=== PATIENT | male | born 1985 | race Caucasian/White ===

== ENCOUNTER 2018-10-06 12:10 | Emergency (ER) | payer BC, OTHER ==
--- NOTE | 2018-10-06 12:26 | EDM.PDOC ---
ED HPI GENERAL MEDICAL PROBLEM - General Chief Complaint: Back Pain or Injury Stated Complaint: BACK INJURY Time Seen by Provider: 10/06/18 12:25 Source of Information: Reports: Patient History Limitations: Reports: No Limitations - History of Present Illness INITIAL COMMENTS - FREE TEXT/NARRATIVE: HISTORY AND PHYSICAL: History of present illness: Patient is a 33-year-old male who presents to the emergency room with complaints of left sided lumbar back pain that radiates into his gluteus and down the posterior leg. He states he was evaluated in the clinic on Sunday and did have imaging done at that time. He was prescribed Flexeril and diclofenac. He has not had any relief with these medications. Patient denies any fever, chills, headache, change in vision, syncope or near syncope. Denies any chest pain, shortness of breath or cough. Denies any abdominal pain, nausea, vomiting, diarrhea, constipation or dysuria. Has not noted any blood in urine or stool. No urinary or fecal incontinence. Patient has been eating and drinking appropriately. Review of systems: As per history of present illness and below otherwise all systems reviewed and negative. Past medical history: As per history of present illness and as reviewed below otherwise noncontributory. Surgical history: As per history of present illness and as reviewed below otherwise noncontributory. Social history: See social history for further information Family history: As per history of present illness and as reviewed below otherwise noncontributory. Physical exam: General: Well-developed and well-nourished 33-year-old male. Alert and oriented. Nontoxic appearing and in no acute distress. HEENT: Atraumatic, normocephalic, pupils equal and reactive bilaterally, negative for conjunctival pallor or scleral icterus, mucous membranes moist, trachea midline. No drooling or trismus noted. No meningeal signs. No hot potato voice noted. Lungs: Clear to auscultation, breath sounds equal bilaterally, chest nontender. Heart: S1S2, regular rate and rhythm without overt murmur Abdomen: Soft, nondistended, nontender. Negative for masses or hepatosplenomegaly. Negative for costovertebral tenderness. Pelvis: Stable nontender. Genitourinary: Deferred. Rectal: Deferred. Skin: Intact, warm, dry. No lesions or rashes noted. C-spine/Back: No pinpoint vertebral tenderness upon palpation. No crepitus, step -offs or obvious deformities. Patient is ambulatory into the emergency room without difficulty or deficits. He is able to lift his great toe towards his nose without difficulty. He denies any urinary or fecal incontinence. Denies any numbness, tingling or saddle paresthesia. Paraspinal muscular tenderness to the left lumbar region into the glute. Extremities: Moves all extremities per self without difficulty or deficits, negative for cords or calf pain. Neurovascular unremarkable. Neuro: Awake, alert, oriented. Cranial nerves II through XII unremarkable. Cerebellum unremarkable. Motor and sensory unremarkable throughout. Exam nonfocal. Notes: Unable to view [facility]'s x-ray reports, it is a weekend and unable to access these medical records either. He is requesting a CT or MRI of his lumbar spine. Do not have MRI capabilities, we discussed the need for follow-up with his primary care for this diagnostic. We'll perform a CT at this time. He has been taking 5 mg of Flexeril and 50 mg of diclofenac. His last dose being early this morning. 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 X-ray shows no acute osseous abnormalities. Medication education was reviewed and discussed. Supportive care measures were reviewed and discussed. Voices understanding and is agreeable to plan of care. Denies any further questions or concerns at this time. Diagnostics: Lumbar spine CT Therapeutics: Dilaudid, Solu-Medrol Prescription: [place] (#20) Medrol Dosepak Impression: Back pain with sciatica Plan: 1. The medication he received as an injection today does cause drowsiness so do not drive for the remaining day 2. When resting please lay on a flat firm surface. Limit your immobility to prevent muscle stiffness, get up to ambulate/move around/gentle stretching multiple times throughout the day. May alternate heat and ice to the painful area and 3. Tylenol as needed for back pain. Otherwise take the prescribed Flexeril and diclofenac as directed. Diclofenac is an anti-inflammatory so do not take any additional NSAIDs with this medication, such as ibuprofen or Aleve. Flexeril as a muscle relaxant, this medication may cause drowsiness a do not take it will driving her needing to be functioning outside of the house. Do not combine the Flexeril or [place] as both cause drowsiness. 4. Please follow-up with your primary care provider as we discussed. 5. Return to the ED as needed and as discussed. Definitive disposition and diagnosis as appropriate pending reevaluation and review of above. Left lower back Pain Score (Numeric/FACES): 4 - Related Data Allergies Allergy/AdvReac Type Severity Reaction Status Date / Time No Known Allergies Allergy Verified 10/06/18 12:25 Home Meds: Home Meds Cyclobenzaprine [Flexeril] 5 mg PO ASDIRECTED 10/06/18 [History] Diclofenac Sodium [Voltaren] 50 mg PO ASDIRECTED 10/06/18 [History] ED ROS GENERAL - Review of Systems Review Of Systems: ROS reveals no pertinent complaints other than HPI. ED EXAM,LOWER BACK PAIN/INJURY - Physical Exam Exam: See Below (See dictation) Course - Vital Signs Last Recorded V/S: Last Vital Signs Temp 98.3 F 10/06/18 12:26 Pulse 69 10/06/18 12:26 Resp 16 10/06/18 12:26 BP 118/83 10/06/18 12:26 Pulse Ox 97 10/06/18 12:26 - Orders/Labs/Meds Meds: Medications Discontinued Medications Generic Name Dose Route Start Last Admin Trade Name Freq PRN Reason Stop Dose Admin Hydromorphone HCl 1 mg 10/06/18 12:31 10/06/18 13:06 Dilaudid IM 10/06/18 12:32 Not Given ONETIME ONE Hydromorphone HCl 1 mg 10/06/18 13:01 10/06/18 13:02 Dilaudid IM 10/06/18 13:02 1 mg ONETIME ONE Administration Hydromorphone HCl Confirm 10/06/18 12:58 10/06/18 13:06 Dilaudid Administered 10/06/18 12:59 Not Given Dose 1 mg .ROUTE .STK-MED ONE Methylprednisolone Sodium Succinate 125 mg 10/06/18 12:31 10/06/18 13:01 Solu-Medrol IM 10/06/18 12:32 125 mg ONETIME ONE Administration Departure - Departure Time of Disposition: 13:16 Disposition: Home, Self-Care 01 Clinical Impression: Back pain with sciatica - Discharge Information Instructions: Sciatica, [id number] Referrals: PCP,Unknown [Primary Care Provider] - Forms: ED Department Discharge Additional Instructions: The following information is given to patients seen in the emergency department who are being discharged to home. This information is to outline your options for follow-up care. We provide all patients seen in our emergency department with a follow-up referral. The need for follow-up, as well as the timing and circumstances, are variable depending upon the specifics of your emergency department visit. If you don't have a primary care physician on staff, we will provide you with a referral. We always advise you to contact your personal physician following an emergency department visit to inform them of the circumstance of the visit and for follow-up with them and/or the need for any referrals to a consulting specialist. The emergency department will also refer you to a specialist when appropriate. This referral assures that you have the opportunity for follow-up care with a specialist. All of these measure are taken in an effort to provide you with optimal care, which includes your follow-up. Under all circumstances we always encourage you to contact your private physician who remains a resource for coordinating your care. When calling for follow-up care, please make the office aware that this follow-up is from your recent emergency room visit. If for any reason you are refused follow-up, please contact the [facility] Emergency Department at and asked to speak to the emergency department charge nurse. [facility] [address] [place] [id number] [place] [address] 1. The medication he received as an injection today does cause drowsiness so do not drive for the remaining day 2. When resting please lay on a flat firm surface. Limit your immobility to prevent muscle stiffness, get up to ambulate/move around/gentle stretching multiple times throughout the day. May alternate heat and ice to the painful area and 3. Tylenol as needed for back pain. Otherwise take the prescribed Flexeril and diclofenac as directed. Diclofenac is an anti-inflammatory so do not take any additional NSAIDs with this medication, such as ibuprofen or Aleve. Flexeril as a muscle relaxant and [place] is a narcotic, these medication may cause drowsiness a do not take it will driving her needing to be functioning outside of the house. Do not combine the Flexeril or [place] as we discussed at length. 4. Please follow-up with your primary care provider as we discussed. 5. Return to the ED as needed and as discussed.
[2018-10-06] MEDS ORDERED: HYDROmorphone 2 MG/ML SDV IM ONE (12:31)
[2018-10-06] MEDS ORDERED: methylPREDNISolone Sodium Succinate 125 MG/2 ML SDV IM ONE (12:31)
[2018-10-06] MEDS ORDERED: HYDROmorphone 1 MG/ML Syringe ONE (12:58)
[2018-10-06] MEDS ORDERED: HYDROmorphone 1 MG/ML Syringe IM ONE (13:01)
--- NOTE | 2018-10-06 13:11 | CT ---
INDICATION: Pt w/lower back pain x 1 wk. Pt denies any injury. No hx of surg. COMPARISON: None. TECHNIQUE: Routine thin-section noncontrast axial CT images of the lumbosacral spine. Sagittal and coronal reformatted series were also generated and reviewed. Total exam DLP 986 mGy-cm. FINDINGS: There are 5 non rib-bearing lumbar type vertebral bodies. Normal vertebral body heights and alignment. There is straightening of the normal lumbar lordosis. No evidence of acute fracture or subluxation. There are multilevel Schmorl`s nodes. Disc spaces are preserved. There is moderate right facet degenerative change at L3-4. The bony spinal canal is widely patent. The bony neural foramina appear patent. Sacroiliac joints are intact. The visualized intra-abdominal and pelvic contents have an unremarkable noncontrast appearance. IMPRESSION: 1. No acute osseous abnormality. 2. Moderate right facet degenerative change at L3-4. 3. Multilevel Schmorl`s nodes. Dictated by Geronimo Pichardo MD @ 10/06/2018 1:09:56 PM Please note that all CT scans at this facility use dose modulation, iterative reconstruction, and/or weight-based dosing when appropriate to reduce radiation dose to as low as reasonably achievable. Dictated by: Geronimo Pichardo MD @ 10/06/2018 13:10:03 (Electronically Signed)
== END 2018-10-06 13:34 | disposition home or self-care (01) ==
LOC: MW.ED 12:10
DX: M54.42 Lumbago with sciatica, left side (principal)
CPT/HCPCS: 72131; 96372; 99283; J1170; J2930; 99284